=== PATIENT | female | born 1965 ===

== ENCOUNTER 2016-04-02 15:01 | Emergency (ER) | payer MEDICAID ==
[~2016-04-02] VITALS: Ht 162.6 cm; Wt 109.1 kg
[~2016-04-02 15:01] MED LIST: NOMED
[2016-04-02 15:17] VITALS: BP 181/101; PULSE 97; RESP 16; O2SAT 98
--- NOTE | 2016-04-02 16:34 | DRSVH ---
PROCEDURE: X-RAY RIGHT FOOT COMPLETE, MINIMUM THREE VIEWS ([id number]) INDICATIONS: injury; continued pain TECHNIQUE: 3 views of the foot were acquired. COMPARISON: None. FINDINGS: Bones: No fractures or dislocations. No suspicious bony lesions. Soft tissues: No tibiotalar joint effusion. Achilles tendon appears normal. IMPRESSION: No acute radiographic findings. If pain persists, repeat study in 5-7 days is recommende d to exclude occult fracture. Dictated by: Varsha Castro M.D. on 04/02/2016 at 16:32 Approved by: Varsha Castro M.D. on 04/02/2016 at 16:33
--- NOTE | 2016-04-02 17:54 | ED.REPORT ---
HPI-Extremity Problem Lower Date of Service Apr 02, 2016 ED Provider: Jean-Paul Quintero History of Present Illness: 51yo female states she dropped a couch on her R foot on 03/05 and it blackened her toenail It was slowly improving but a toddler stomped on her R foot a few days ago and pain has persisted since at base of toes. "I walk fine on my heel." Nursing Notes Stated Complaint: RIGHT FOOT INJURY Chief Complaint: Extremity Trauma Allergies: Coded Allergies: hydrocodone (Verified Allergy, Unknown, 04/05/14) Uncoded Allergies: BEES (Allergy, Unknown, 04/05/14) CRAB (Allergy, Unknown, 04/05/14) PENICILLIN (Allergy, Unknown, 04/05/14) Scheduled PRN Acetaminophen/Codeine 300-30mg (Tylenol/Codeine #3) 1 Each Tablet 1 TABLET PO QID PRN PRN Pain Miscellaneous Medications No Historical Medication (No Historical Medication) Ea General Time Seen by MD: 17:17 Chief Complaint Foot injury right Hx Obtained From: Patient Onset Occurred: More than a week ago... (3 weeks) Symptom Duration: Since onset Caused by: Blow Context: Occurred at: Home injury Location: : Foot right Quality: Painful, Sharp Severity: Current: Moderate Severity: Maximum: Severe Pertinent Negative: Pt denies other symptoms Exacerbated by: Extension, Movement Relieved by: Rest Recent Healthcare: No recent doctor visit Similar Sx Previous: No Risk-Extremity Prob Lower Well's Criteria for DVT Well's DVT Score: 0 pts (low risk 5%) Past Medical History Past Medical History None Past Surgical History Left wrist fracture repair L great toe surgery Smoking History Unknown if Ever Smoker Social History Alcohol Use: Denies alcohol use Drug Use: Denies drug use Ambulatory Status Independent Review of Systems Basic Review of Systems Respiratory: No shortness of breath Cardiovascular: No chest pain GI: No abdominal pain Constitutional: Denies: Chills, Fever Musculoskeletal: Reports: Extremity pain Physical Exam Physical Exam Notes: elevated BP noted Initial Vital Signs Vital Signs (First) Date Time Temp Pulse Resp B/P Pulse Ox O2 Delivery O2 Flow Rate FiO2 04/02/16 15:17 36.5 97 16 181/101 98 Room Air Initial VS: Reviewed Right Ankle: Negative: Achilles deficit, Neuro deficit present, Tender lat ligaments..., Tenderness present... Right Foot: Positive: Tenderness present... (Moderate), Negative: Swelling present... Right Great Toe: Positive: Subungual hematoma General/Constitutional: Awake, Alert, No acute distress, Not toxic appearing Respiratory / Chest: Breath sounds NL, Breath sounds = bilat, No respiratory distress Cardiovascular: Regular rhythm, Heart sounds NL Interpretation & Diagnostics X-Ray Interpretation Xray Interpretation: PROCEDURE: X-RAY RIGHT FOOT COMPLETE, MINIMUM THREE VIEWS ([id number]) INDICATIONS: injury; continued pain TECHNIQUE: 3 views of the foot were acquired. COMPARISON: None. FINDINGS: Bones: No fractures or dislocations. No suspicious bony lesions. Soft tissues: No tibiotalar joint effusion. Achilles tendon appears normal. IMPRESSION: No acute radiographic findings. If pain persists, repeat study in 5-7 days is recommended to exclude occult fracture. Dictated by: Varsha Castro M.D. on 04/02/2016 at 16:32 Approved by: Varsha Castro M.D. on 04/02/2016 at 16:33 Re-Eval/Medical Decision Med Decision/Clinical Course Pt. 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 Encouraged protective footwear, rest, sparing use of T3 as needed. Follow up with [facility] to establish care. Return to ER if anything worsens. Counseled Regarding: Diagnosis, Lab results, Need for follow-up, When/why to return to ED Discharge & Departure Impression: Primary Impression: Contusion of right foot Encounter type: initial encounter Qualified Code: S90.31XA - Contusion of right foot, initial encounter Disposition: Home Discharge Condition Condition: Stable Patient Instructions: Contusions in Adults (ED) Additional Instructions: Rest, elevation, local heat. Wear protective shoe to avoid reinjury. Take Tylenol with codeine sparingly as needed for pain, may use Advil between doses as needed. Referrals: [facility] Resident Clinic EDSupervising Provider for APC: Abdon Espinosa MD, Christopher R PAC Apr 02, 2016 17:54
[2016-04-02] MEDS ORDERED: ACET1TAB12 PO (17:55)
[2016-04-02 17:59] VITALS: BP 180/94; PULSE 88; RESP 18; O2SAT 99
== END 2016-04-02 18:00 | disposition home or self-care (01) ==
LOC: SED 15:01
DX: S90.31XA Contusion of right foot, initial encounter (principal); W20.8XXA Other cause of strike by thrown, projected or falling object, initial encounter; Y93.89 Activity, other specified; Y92.009 Unspecified place in unspecified non-institutional (private) residence as the place of occurrence of the external cause; Y99.8 Other external cause status; Z98.890 Other specified postprocedural states; Z88.5 Allergy status to narcotic agent